=== PATIENT | male | born 1975 | race Hispanic/Latino ===

== ENCOUNTER 2019-04-19 09:05 | Day surgery (SDC) | payer BC ==
[~2019-04-19] VITALS: Ht 170.2 cm; Wt 99.8 kg
[2019-04-19] VITALS (14 sets, daily range): BP systolic 127–140; BP diastolic 70–86
[~2019-04-19 09:05] MED LIST: SODIUM CHLORIDE 0.9% 1000ML 1,000 ML IV ONE; TYLENOL
[2019-04-19] MEDS ORDERED: MIDAZOLAM HCL 1 MG/ML 2ML VIAL ONE (10:49)
[2019-04-19] MEDS ORDERED: PROPOFOL 10 MG/ML 20ML VIAL IV ONE (10:50)
[2019-04-19] MEDS ORDERED: LIDOCAINE PF 2% 5ML ABBOJECT ONE (10:50)
[2019-04-19] MEDS ORDERED: SUCCINYLCHOLINE 200MG/10ML SYR ONE (10:50)
[2019-04-19] MEDS ORDERED: FENTANYL CITRATE PF 50 MCG/1 ML 2ML VIAL ONE (10:50)
[2019-04-19] MEDS ORDERED: INDOMETHACIN 50 MG SUPP.RECT RC SCH (11:00)
[2019-04-19] MEDS ORDERED: ONDANSETRON HCL 4 MG/2 ML VIAL ONE (11:14)
[2019-04-19] MEDS ORDERED: IOHEXOL-350 50ML VIAL IV ONE (11:20)
== END 2019-04-19 12:52 | disposition home or self-care (01) ==
LOC: DAH 09:05 → ENDO 09:05
PROVIDERS: ATTEND Internal Medicine
DX: R10.10 Upper abdominal pain, unspecified (principal); K86.89 Other specified diseases of pancreas; K59.00 Constipation, unspecified; D13.7 Benign neoplasm of endocrine pancreas; I10 Essential (primary) hypertension; E78.5 Hyperlipidemia, unspecified; Z79.899 Other long term (current) drug therapy; Z85.07 Personal history of malignant neoplasm of pancreas; Z98.890 Other specified postprocedural states
CPT/HCPCS: 43276; 74329; 82948; A4215; A4221; A4222; A4223; A4606; A4657; A4663; C1769; C2617; J0330; J2001; J2250; J2405; J2704; J3010; J7030; Q9967; 74330

== ENCOUNTER 2020-09-24 08:12 | Day surgery (SDC) | payer BC ==
[~2020-09-24] VITALS: Ht 167.6 cm; Wt 112.5 kg
[2020-09-24] VITALS (9 sets, daily range): BP systolic 94–128; BP diastolic 50–75
[~2020-09-24 08:12] MED LIST changes: +0.9%NACL 1000ML 1,000 ML IV ONE; +OMEP40CA21 PO; -SODIUM CHLORIDE 0.9% 1000ML 1,000 ML IV ONE; -TYLENOL
[2020-09-24] MEDS ORDERED: MIDAZOLAM HCL 1 MG/ML 2ML VIAL ONE (12:01)
[2020-09-24] MEDS ORDERED: PROPOFOL 10 MG/ML 20ML VIAL IV ONE (12:01)
== END 2020-09-24 13:20 | disposition home or self-care (01) ==
LOC: ENDO 08:12 → DAH 08:12 → ENDO 13:20
PROVIDERS: ATTEND Internal Medicine Gastroenterology
DX: R10.13 Epigastric pain (principal); Z20.822 Contact with and (suspected) exposure to COVID-19; K21.9 Gastro-esophageal reflux disease without esophagitis; K29.70 Gastritis, unspecified, without bleeding; K59.00 Constipation, unspecified; I10 Essential (primary) hypertension; E78.5 Hyperlipidemia, unspecified; Z98.890 Other specified postprocedural states; Z79.899 Other long term (current) drug therapy
CPT/HCPCS: 43239; 43259; A4215 ×2; A4221; A4222; A4223; A4606; A4620; A4657; A4663; C9803; J2250; J2704; J7030; U0003